=== PATIENT | female | born 1965 | race Native Hawaiian/Other Pacific Islander ===

== ENCOUNTER 2018-03-30 09:21 | Outpatient (CLI) | payer BC | END 2018-03-30 19:23 | disposition home or self-care (01) | LOC: LABW 09:21 | DX: N95.8 Other specified menopausal and perimenopausal disorders (principal) | CPT/HCPCS: 36415; 82670; 83001; 83002 ==

== ENCOUNTER 2020-11-26 10:09 | Outpatient (CLI) | payer BC | END 2020-11-26 23:44 | disposition home or self-care (01) | LOC: US 10:09 | PROVIDERS: ATTEND Internal Medicine | DX: R20.2 Paresthesia of skin (principal); M25.521 Pain in right elbow; M25.511 Pain in right shoulder ==

== ENCOUNTER 2022-04-19 08:55 | Outpatient (CLI) | payer OTHER | END 2022-04-19 19:10 | disposition home or self-care (01) | LOC: RAD 08:55 | PROVIDERS: ATTEND Internal Medicine | DX: Z02.71 Encounter for disability determination (principal); G57.52 Tarsal tunnel syndrome, left lower limb; G58.8 Other specified mononeuropathies; G47.30 Sleep apnea, unspecified; H26.9 Unspecified cataract ==

== ENCOUNTER 2022-06-01 12:25 | Outpatient (CLI) | payer BC | END 2022-06-01 19:00 | disposition home or self-care (01) | LOC: RAD 12:25 | PROVIDERS: ATTEND Nurse Practitioner Family | DX: M79.642 Pain in left hand (principal); M79.641 Pain in right hand ==